=== PATIENT | female | born 1960 | race Caucasian/White ===

== ENCOUNTER 2019-10-18 07:53 | Emergency (ER) | payer BC, OTHER ==
[2019-10-18] MEDS ORDERED: VANCOMYCIN INJ 1 GM in SODIUM CHLORIDE 0.9% 500 ML IV STA (08:39)
--- NOTE | 2019-10-18 08:43 | ED Physician Documentation ---
History of Present Illness - Stated complaint Stated Complaint: LT EYE PX,SWELLLING - Chief complaint Chief Complaint: Heent - History obtained from History obtained from: Patient, Family - History of Present Illness Timing: How many days ago (4) - Additonal information Additional information: 59-year-old female with a prior history of facial erysipelas has developed swelling and erythema to the left eyelid and she was given an injection yesterday morning in her doctor's office and placed on some Augmentin. She is taken a dose last night of the Augmentin she is not taken her dose this morning her symptoms are worse this morning she is coming to the emergency department for evaluation. Review of Systems Constitutional: denies: Fever, Chills Eyes: reports: Other (Left eyelid swelling). denies: Loss of vision, Decreased vision, Photophobia, Discharge Ears: denies: Ear pain Nose: denies: Rhinorrhea / runny nose, Congestion Throat: denies: Sore throat Cardiac: denies: Chest pain / pressure, Palpitations Respiratory: denies: Dyspnea, Cough GI: denies: Abdominal Pain, Nausea, Vomiting : denies: Dysuria, Frequency Skin: reports: Rash Musculoskeletal: denies: Neck pain, Back pain, Extremity pain Neurologic: denies: Generalized weakness, Focal weakness, Numbness PD PAST MEDICAL HISTORY - Present Medications Home Medications: Ambulatory Orders Medication Instructions Recorded Confirmed Sulfamethoxazole/Trimethoprim 1 each PO BID #20 tablet 10/18/19 [Sulfamethoxazole-Tmp Ds Tablet] - Allergies Allergies/Adverse Reactions: Allergies Allergy/AdvReac Type Severity Reaction Status Date / Time Penicillins Allergy Rash Verified 10/18/19 08:17 PD ED PE NORMAL - Vitals Vital signs reviewed: Yes (Hypertensive) - General General: Alert and oriented X 3, No acute distress, Well developed/nourished - HEENT HEENT: Atraumatic, PERRL, EOMI, Ears normal, Other - Neck Neck: Supple, no meningeal sign (There is swelling and ecchymosis to the left upper and lower eyelid and the left cheek consistent with periorbital cellulitis the globe itself is not involved there is no hyphema or distortion of the globe.), No bony TTP - Cardiac Cardiac: RRR, No murmur - Respiratory Respiratory: No respiratory distress, Clear bilaterally - Abdomen Abdomen: Normal bowel sounds, Soft, Non tender, Non distended, No organomegaly - Back Back: No CVA TTP, No spinal TTP - Derm Derm: Normal color, Warm and dry, No rash - Extremities Extremities: No deformity, No edema - Neuro Neuro: Alert and oriented X 3, plunket nurse 2-12 intact, No motor deficit, No sensory deficit Eye Opening: Spontaneous Motor: Obeys Commands Verbal: Oriented GCS Score: 15 - Psych Psych: Normal mood, Normal affect Results - Vitals Vitals: Vital Signs - 24 hr 10/18/19 08:17 Temperature 36.7 C Heart Rate 94 Respiratory 18 Rate Blood Pressure 158/96 H O2 Saturation 100 Oxygen O2 Source Room air - Labs Labs: Laboratory Tests 10/18/19 10/18/19 10/18/19 08:55 08:55 08:55 WBC 5.2 RBC 4.62 Hgb 14.2 Hct 42.9 MCV 92.9 MCH 30.7 MCHC 33.1 RDW 11.9 L Plt Count 256 MPV 10.0 Neut # (Auto) 3.1 Lymph # (Auto) 1.7 [place] # (Auto) 0.2 Eos # (Auto) 0.1 Baso # (Auto) 0.0 Absolute Nucleated RBC 0.00 Nucleated RBC % 0.0 Sodium 140 Potassium 4.1 Chloride 103 Carbon Dioxide 26 Anion Gap 11.0 BUN 14 Creatinine 0.6 Estimated GFR (MDRD) 102 Glucose 113 H Lactic Acid 1.8 Calcium 9.2 Total Bilirubin 0.6 AST 18 ALT 21 Alkaline Phosphatase 86 Total Protein 7.2 Albumin 4.2 Globulin 3.0 Albumin/Globulin Ratio 1.4 Lipase 23 PD MEDICAL DECISION MAKING - ED course Complexity details: reviewed results, re-evaluated patient, considered differential, d/w patient, d/w family, d/w PMD (Texted her PMD about prior culture results and there was none. ) ED course: 59-year-old female with periorbital cellulitis on the left side has progression of her symptoms despite starting treatment yesterday with clindamycin IM and Augmentin. Here today she is given a dose of vancomycin intravenously we will continue her on the Augmentin and we will add Septra into her regimen. She will return here or follow-up with her primary for any outpatient failure. Departure - Departure Disposition: 01 Home, Self Care Clinical Impression: Periorbital cellulitis of left eye Condition: Stable Instructions: ED Cellulitis Myesha Orbital Follow-Up: Your, doctor [Other] Prescriptions: Sulfamethoxazole/Trimethoprim [Sulfamethoxazole-Tmp Ds Tablet] 1 each PO BID #20 tablet Comments: Today we are adding staff coverage to your antibiotic therapy. Make certain that you take your Augmentin as prescribed as well.
[2019-10-18 09:06] LABS: BASOPHILS % (AUTO) 0.2 %; EOSINOPHILS # (AUTO) 0.1 10^3/uL (0.0-0.7); EOSINOPHILS % (AUTO) 1.7 %; HGB - HEMOGLOBIN 14.2 g/dL (12.0-16.0); LYMPHOCYTES # (AUTO) 1.7 10^3/uL (1.5-3.5); MEAN CORPUSCULAR HEMOGLOBIN 30.7 pg (27.0-31.0); MEAN CORPUSCULAR HGB CONC 33.1 g/dL (32.0-36.0); MEAN CORPUSCULAR VOLUME 92.9 fL (81.0-99.0); MONOCYTES # (AUTO) 0.2 10^3/uL (0.0-1.0); MONOCYTES % (AUTO) 4.7 %; NEUTROPHILS # (AUTO) 3.1 10^3/uL (1.5-6.6); PLT - PLATELET COUNT 256 10^3/uL (130-450); RED BLOOD COUNT 4.62 10^6/uL (4.20-5.40); RED CELL DISTRIBUTION WIDTH 11.9 % (12.0-15.0); WHITE BLOOD COUNT 5.2 x10^3/uL (4.8-10.8)
[2019-10-18 09:16] LABS: ALBUMIN 4.2 g/dL (3.2-5.5); ALBUMIN/GLOBULIN RATIO 1.4 (1.0-2.2); BILIRUBIN,TOTAL 0.6 mg/dL (0.2-1.0); CALCIUM 9.2 mg/dL (8.5-10.3); CREATININE 0.6 mg/dL (0.4-1.0); TOTAL PROTEIN 7.2 g/dL (6.7-8.2)
[2019-10-18 11:23] VITALS: BP 144/88
== END 2019-10-18 11:39 | disposition home or self-care (01) ==
LOC: ED 07:53
DX: L03.213 Periorbital cellulitis (principal)
CPT/HCPCS: 36415; 80053; 83605; 83690; 85025; 87040; 96365; 96366; 99283; 99284; J3370